=== PATIENT | female | born 1990 | race American Indian/Alaskan Native ===

== ENCOUNTER 2020-05-06 17:15 | Emergency (ER) | payer OTHER ==
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
[2020-05-06 23:07] LABS: Bilirubin,Urine NEG (Negative); Blood,Urine MOD (Negative); Color,Urine Yellow (Yellow); Mucus,Urine FEW /HPF; Protein,Urine <15 mg/dL mg/dL (Negative); Urobilinogen,Urine < 2.0 mg/dL (<2.0)
[2020-05-06 23:18] LABS: HCG Qualitative,Urine Negative (Negative)
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
[2020-05-07 05:29] VITALS: BP 116/65
== END 2020-05-07 04:01 | disposition home or self-care (01) ==
LOC: ED 17:15
DX: M94.0 Chondrocostal junction syndrome [Tietze] (principal); V89.2XXA Person injured in unspecified motor-vehicle accident, traffic, initial encounter; Y93.89 Activity, other specified; Y92.410 Unspecified street and highway as the place of occurrence of the external cause; Y99.8 Other external cause status
CPT/HCPCS: 81001; 81025